=== PATIENT | female | born 1950 | race Caucasian/White ===

== ENCOUNTER 2018-06-30 00:21 | Emergency (ER) | payer OTHER, MEDICARE, BC ==
[~2018-06-30] VITALS: Ht 165.1 cm; Wt 126.1 kg
== END 2018-06-30 01:00 | disposition home or self-care (01) ==
LOC: ER 00:21
DX: S00.83XA Contusion of other part of head, initial encounter (principal); V89.2XXA Person injured in unspecified motor-vehicle accident, traffic, initial encounter